=== PATIENT | male | born 1970 | race Caucasian/White ===

== ENCOUNTER → 2023-07-25 | Day surgery (SDC) | payer BC ==
[~2023-07-25] MED LIST: Lactated Ringers 1,000 ML IV SCH; Lidocaine 2% 5 ML SDV INJECT ONE; Propofol 200 MG/20 ML SDV IV ONE; Simethicone Drops 40 MG/0.6 ML 30 ML Bottle PO ONE; Sodium Chloride 0.9% 10 ML Syringe FLUSH PRN
== END | disposition home or self-care (01) ==
LOC: FB.SDS 07:34
PROVIDERS: ATTEND Surgery
DX: Z12.11 Encounter for screening for malignant neoplasm of colon (principal); D12.6 Benign neoplasm of colon, unspecified; K40.90 Unilateral inguinal hernia, without obstruction or gangrene, not specified as recurrent; Z98.890 Other specified postprocedural states
CPT/HCPCS: 88305; A9270-GY; J2704; J7120